=== PATIENT | male | born 1970 | race Caucasian/White ===

== ENCOUNTER 2017-03-22 11:00 | Emergency (ER) | payer OTHER ==
--- NOTE | ~2017-03-22 | CR173 ---
[facility] A [facility] RADIOLOGY TEXT RESULTS PATIENT: AUNDREA PRESCOTT LOCATION: [facility] : 70 UNIT #: [id number] AGE: [address]: Hermelinda Krishnan SEX: M ORDER DR: [id number] [facility]. [place], [place] [address] [id number] MR#: [id number] #: [id number] NAME: AUNDREA PRESCOTT. : 1970 SEX: M STUDY DATE/TIME: 03/22/2017 11:44 UNIT: [id number] ROOM: STUDY DESCRIPTION: CR Knee 3 Views Rt Attending Physician: Hermelinda Krishnan P.A.-C. Ordering Physician: Hermelinda Krishnan P.A.-C. MEDICAL IMAGING REPORT This report is preliminary unless electronic signature is present EXAM Right knee, 3 views COMPARISON 2 views of the right tibia-fibula. COMPARISON STUDIES None. HISTORY 46-year-old male with right knee pain, swelling, numbness and tingling behind the patella after hyperextending the left knee today. FINDINGS Bones are anatomically aligned. There is mild enthesopathy of the superior patella. No evidence of acute fracture. Questionable small suprapatellar effusion. IMPRESSION 1. No acute fracture or dislocation right knee. 2. Mild patellar enthesopathy. 3. Questionable small suprapatellar effusion. Dictated by... Octavio Figueroa M.D. THIS IS AN ELECTRONICALLY VERIFIED REPORT Octavio Figueroa M.D. at 03/30/2017 9:46 PM BLM/pcl TD: 03/22/2017 14:56 JOB #: [id number] [facility] A [facility] RADIOLOGY TEXT RESULTS PATIENT: AUNDREA PRESCOTT LOCATION: [facility] : 70 UNIT #: [id number] AGE: [address]: Hermelinda Krishnan SEX: M ORDER DR: MEDICAL IMAGING REPORT Page 1 of 1 COPY
[~2017-03-22 11:00] MED LIST: TYLOX 5/500 CAP1 CAP PO; ULTRAM PO; ZITHROMAX PO
== END 2017-03-22 12:57 | disposition home or self-care (01) ==
LOC: CED 11:00 → CFTX 11:47
DX: S83.421A Sprain of lateral collateral ligament of right knee, initial encounter (principal); M25.461 Effusion, right knee; W01.0XXA Fall on same level from slipping, tripping and stumbling without subsequent striking against object, initial encounter; Y92.69 Other specified industrial and construction area as the place of occurrence of the external cause; Y99.0 Civilian activity done for income or pay
CPT/HCPCS: 29505; 73562; 99283